=== PATIENT | male | born 1975 | race Caucasian/White ===

== ENCOUNTER → 2018-01-25 | Outpatient (CLI) | payer OTHER ==
[~2018-01-25] MED LIST: CHOL100010 PO; CLR10 PO; MULT-506 PO; OXYM0.0592 NAE
== END | disposition home or self-care (01) ==
LOC: C.PATHSPEC 14:39
DX: C44.310 Basal cell carcinoma of skin of unspecified parts of face (principal)

== ENCOUNTER 2025-03-29 07:29 | Observation (INO) ==
--- NOTE | 2025-03-29 07:43 | Emergency Department Note ---
Impression & Plan Renal colic, Acute flank pain, Hydronephrosis ED Provider Note NAME: LEYLA SILVA AGE: 50 SEX: M : 1975 ARRIVES VIA: Walk-In INFORMANT: Patient ED PROVIDER(S): Leyla Davies DO CHIEF COMPLAINT: Right flank pain HPI: Patient is a 50-year-old male who presents ER for right flank pain. He notes it started this morning around 6 AM. Started in the back and is radiated to the right flank. Associated with nausea but no vomiting. Denies any headache or change in vision. No chest pain or shortness of breath. No dysuria, urgency, or frequency but notes he is having trouble appearing. This feels exact like his previous kidney stones. No other exacerbating or remitting factors. He notes he is unable to sit still due to the pain. ADDITIONAL HISTORY OBTAINED: Per HPI Chronic Medical/Social Conditions Affecting Care: Per HPI PAST MEDICAL HISTORY:See Below PAST SURGICAL HISTORY:See Below FAMILY HISTORY:See Below SOCIAL HISTORY:See Below HOME MEDICATIONS:See Below ALLERGIES:See Below VITALS:See Below PHYSICAL EXAMINATION: GENERAL: Sitting up in bed, alert, in significant distress holding right flank rolling around in bed EYE EXAM: normal conjunctiva. OROPHARYNX: Dry mucous membranes LUNGS: Clear to auscultation. Normal chest wall mechanics HEART: no murmurs, S1 normal and S2 normal ABDOMEN: abdomen soft, non-tender, normo-active bowel sounds, no masses, no rebound or guarding. BACK: Back is symmetrical on inspection and there is no deformity, no midline tenderness, no CVA tenderness. UPPER EXTREMITIES: upper extremities are grossly normal. LOWER EXTREMITIES: No pitting edema. NEURO EXAM: Normal sensorium, cranial nerves II-XII grossly intact, normal speech, no gross weakness of arms, no gross weakness of legs. MEDICAL DECISION MAKING: Patient is a 50-year-old male who presents to the ER who presents the ER for above-stated complaint. IV was established blood work was obtained. Labs show no significant leukocytosis or anemia. BMP with a CO2 at 19. LFTs and bilirubin unremarkable. Lipase normal. UA was negative. CT abdomen pelvis shows a 5 mm mid ureteral stone. Patient was given 2 doses of morphine as well as Dilaudid Toradol and Tylenol. He still had persistence and recurrence of the pain. He was given Zofran. He was updated bedside and he is feeling better and consequently was put up for discharge. Pain worsened and at this time he was admitted and discussed with the hospitalist. Consults/Care Managements Discussions: Per MDM Triage Nursing notes reviewed. Limited review of prior medical records performed Vital Signs: reviewed and remarkable for no significant abnormalities Differential diagnosis: Differential diagnoses includes but is not limited to gastritis, peptic ulcer disease, GERD, gallbladder disease, pancreatitis, small bowel obstruction, appendicitis, diverticulitis, hernia, urinary tract infection, torsion, perforation, trauma, infectious. ER treatment provided: See below Diagnostics interpreted by me include EKG and cardiac monitoring as listed below: -Cardiac Monitoring: An order was placed for continuous cardiac monitoring. The monitor shows a rate of 80 with sinus rhythm. -ECG: none -Laboratory studies:Interpreted by me as stated above in MDM and shown below. Imaging studies: Xrays: As interpreted by me:none CTs show: CT abdomen pelvis per my pleurae interpretation shows no obvious bowel obstruction CT abdomen pelvis per radiology as described above Procedures:none Critical Care: None Past Med/Surg History Problem List Right ureteral stone Hydronephrosis (Acute) Acute flank pain (Acute) Renal colic (Acute) Status post right inguinal hernia repair H/O hernia repair (08/16/19) Right Inguinal Hernia Open Repair, Right Sided Vasectomy Dr. Silvestre & Dr. Devi 08/16/19 control counseling Encounter for pre-operative examination Kidney stones No known health problems (Chronic 09/19/12) Medical History Anxiety and depression Kidney stones Mitral valve prolapse does not follow with anyone - dx yrs ago History of skin cancer Surgical History Hx of colonoscopy Hx of tonsillectomy Hx of inguinal hernia surgery Dr. 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 3x Family History Grandfather Diabetes Grandmother Diabetes Mother Hypertension Father Cancer Social History Smoking Status: Unknown if ever smoked Second Hand Exposure: No; Do You Dip or Chew Tobacco: No; Hx Alcohol Use: Yes Alcohol type: wine Alcohol Intake Frequency Comment: 1-2 months Hx Substance Use: No Preferred Language: Malian Communication Ability: Effective Virtual Assistant For Advertisers Required: No Beliefs That Will Affect Care: None marital status: Current Living Situation: Alone current occupational status: employed current occupation: IT Feels Safe at Home: Yes Assistive Devices: Contacts and Glasses Allergies Allergies Allergy/AdvReac Type Severity Reaction Status Date / Time gluten Allergy Mild Diarrhea Verified 03/29/25 12:56 Home Meds Home Medications Medication Instructions Recorded Confirmed omega-3 fatty acids 1 cap PO DAILY 07/22/24 03/29/25 trazodone 150 mg tablet 75 mg PO HS PRN Sleep 07/22/24 03/29/25 Previous Rx's Medication Instructions Recorded oxycodone 5 mg tablet 5 mg PO Q4H PRN pain #16 tabs 06/04/24 tamsulosin 0.4 mg capsule 0.4 mg PO HS #30 caps 06/13/24 Results & Data (ED) Vital Signs Vital Signs - 24 hr 03/29/25 07:32 03/29/25 07:52 03/29/25 08:00 Temperature 36.5 C Temperature Source Temporal Artery Scan Pulse Rate 88 83 Pulse Rate [Apical] 78 Pulse Rate [Right Finger] Pulse Rhythm [Right Finger] Pulse Strength [Right Finger] Respiratory Rate 22 18 Respiratory Effort / Characteristics Non-Labored Spontaneous Non-Labored Spontaneous Respiratory Depth Normal Normal Respiratory Pattern Blood Pressure 119/67 Blood Pressure [Left Arm] 111/70 Blood Pressure Mean 84 Blood Pressure Mean [Left Arm] 83 Blood Pressure Position [Left Arm] Lying Pulse Oximetry 96 98 Oxygen Delivery Method Room Air Room Air Oxygen Flow Rate Sepsis Recent Fever Within 48 Hours No Sepsis New/Unexplained Change in Mental Status N/A Sepsis Action Taken by Nursing No Action Required 03/29/25 08:39 03/29/25 08:39 03/29/25 10:00 Temperature Temperature Source Pulse Rate Pulse Rate [Apical] 57 L Pulse Rate [Right Finger] Pulse Rhythm [Right Finger] Pulse Strength [Right Finger] Respiratory Rate 18 Respiratory Effort / Characteristics Non-Labored Spontaneous Respiratory Depth Normal Respiratory Pattern Blood Pressure Blood Pressure [Left Arm] 117/70 Blood Pressure Mean Blood Pressure Mean [Left Arm] 85 Blood Pressure Position [Left Arm] Lying Pulse Oximetry 79 L 100 94 Oxygen Delivery Method Room Air Nasal Cannula Room Air Oxygen Flow Rate 2 Sepsis Recent Fever Within 48 Hours Sepsis New/Unexplained Change in Mental Status Sepsis Action Taken by Nursing 03/29/25 11:24 03/29/25 12:32 03/29/25 12:45 Temperature 36.6 C 36.6 C Temperature Source Oral Oral Pulse Rate Pulse Rate [Apical] 72 Pulse Rate [Right Finger] 68 68 Pulse Rhythm [Right Finger] Regular Regular Pulse Strength [Right Finger] Normal Normal Respiratory Rate 18 18 18 Respiratory Effort / Characteristics Non-Labored Spontaneous Non-Labored Spontaneous Non-Labored Spontaneous Respiratory Depth Normal Normal Normal Respiratory Pattern Regular Regular Blood Pressure Blood Pressure [Left Arm] 124/72 109/71 109/71 Blood Pressure Mean Blood Pressure Mean [Left Arm] 89 83 83 Blood Pressure Position [Left Arm] Lying Lying Lying Pulse Oximetry 100 99 99 Oxygen Delivery Method Room Air Room Air Room Air Oxygen Flow Rate Sepsis Recent Fever Within 48 Hours Sepsis New/Unexplained Change in Mental Status Sepsis Action Taken by Nursing Laboratory Data 03/29/25 07:40 03/29/25 07:40 Lab Results 03/29/25 03/29/25 Range/Units 07:40 09:11 WBC 6.54 (4.8-10.8) K/ul RBC 4.66 L (4.70-6.10) M/uL Hgb 14.8 (14.0-18.0) g/dl Hct 43.2 (42.0-52.0) % MCV 92.7 (80.0-100.0) fL MCH 31.8 (25.0-34.0) pg MCHC 34.3 (32.0-36.0) g/dL RDW Std Deviation 41.9 (36.4-46.3) fL RDW Coeff of Saji 12.2 (11.5-14.5) % Plt Count 202 (130-400) K/uL MPV 10.8 (9.4-12.4) fL Immature Gran % (Auto) 0.2 % Neut % (Auto) 41.5 % Lymph % (Auto) 44.0 % Ransom % (Auto) 9.3 % Eos % (Auto) 4.1 % Baso % (Auto) 0.9 % Neut # (Auto) 2.71 (1.40-6.50) K/uL Lymph # (Auto) 2.88 (1.20-3.40) K/uL Ransom # (Auto) 0.61 H (0.11-0.59) K/uL Eos # (Auto) 0.27 (0.00-0.50) K/uL Baso # (Auto) 0.06 (0.00-0.20) K/uL Immature Gran # (Auto) 0.01 (0.01-0.20) K/uL Sodium 139 (136-145) mmol/L Potassium 3.9 (3.5-5.1) mmol/L Chloride 105 (98-107) mmol/L Carbon Dioxide 19 L (21-32) mmol/L Anion Gap 15 H (3-11) BUN 12 (6-23) mg/dl Creatinine 1.12 (0.6-1.4) mg/dl Est Cr Clr Drug Dosing 81.5 ml/min eGFR 80.03 BUN/Creatinine Ratio 10.7 (10-20) Glucose 167 H (70-99(Fasting)) mg/dl Calcium 9.6 (8.6-10.3) mg/dl Total Bilirubin 0.8 (0.2-1.0) mg/dl AST 29 (13-39) U/L ALT 32 (7-52) U/L Alkaline Phosphatase 98 (34-104) U/L Total Protein 6.9 (6.0-8.3) gm/dl Albumin 4.5 (3.4-5.0) gm/dl Globulin 2.4 L (2.5-4.0) gm/dl Albumin/Globulin Ratio 1.9 (0.9-2) Lipase 27 (11-82) U/L Urine Color Yellow Urine Appearance Clear (Clear) Urine pH 6.0 (4.5-7.5) Ur Specific [place] 1.013 (1.000-1.030) Urine Protein Negative (Negative) Urine Glucose (UA) 1+ H (Negative) Urine Ketones 3+ H (Negative) Urine Blood 2+ H (Negative) Urine Nitrite Negative (Negative) Urine Bilirubin Negative (Negative) Urine Urobilinogen Negative (Negative) Ur Leukocyte Esterase Negative (Negative) Urine WBC (Auto) 0-5 (0-5) /hpf Urine RBC (Auto) 11-20 H (0-2) /hpf U Hyaline Cast (Auto) 0-2 (0-2) /lpf U Epithel Cells (Auto) 0-2 (0-2) /hpf Urine Bacteria (Auto) None Seen (None Seen) Urine Comment Administered Medications Discontinued Medications Hydromorphone HCl (Hydromorphone Inj 1 Mg/Ml Syringe) 1 mg IV NOW STA Stop: 03/29/25 10:53 Last Admin: 03/29/25 11:15 Dose: 1 mg Documented By: CC Sodium Chloride (Nss) 1,000 mls @ 999 mls/hr IV .Q1H1M NIK Stop: 03/29/25 09:45 Last Admin: 03/29/25 07:45 Dose: 999 mls/hr Documented By: Infusion: 03/29/25 07:45 Dose: Infused Documented By: Admin: 03/29/25 07:45 Dose: 999 mls/hr Documented By: MR Acetaminophen (Ofirmev) 1,000 mg in 100 mls @ 400 mls/hr IV NOW STA Stop: 03/29/25 08:19 Last Infusion: 03/29/25 09:02 Dose: Infused Documented By: Admin: 03/29/25 08:09 Dose: 400 mls/hr Documented By: CC Ketorolac Tromethamine (Ketorolac Tromethamine 15 Mg/Ml Vial) 15 mg IV NOW ONE Stop: 03/29/25 07:40 Last Admin: 03/29/25 07:46 Dose: 15 mg Documented By: MR Morphine Sulfate (Morphine Sulfate 10 Mg/Ml Carp/Vial) 6 mg IV NOW STA Stop: 03/29/25 07:40 Last Admin: 03/29/25 07:46 Dose: 6 mg Documented By: MR Morphine Sulfate (Morphine Sulfate 10 Mg/Ml Carp/Vial) 6 mg IV NOW STA Stop: 03/29/25 08:05 Last Admin: 03/29/25 08:07 Dose: 6 mg Documented By: CC Ondansetron HCl (Ondansetron Inj 2 Mg/Ml 2 Ml Vial) 4 mg IV NOW STA Stop: 03/29/25 07:40 Last Admin: 03/29/25 07:46 Dose: 4 mg Documented By: Tamsulosin HCl (Tamsulosin Hcl 0.4 Mg Cap) 0.4 mg PO NOW ONE Stop: 03/29/25 08:06 Last Admin: 03/29/25 08:35 Dose: Not Given Documented By: CC Imaging Data Radiologist's Impression: Abdomen/Pelvis CT 03/29/25 07:[address] WITHOUT CONTRAST CT DOSE: 690.47 mGy.cm HISTORY: r flank pain TECHNIQUE: Multiaxial CT images of the abdomen and pelvis were performed without contrast. A dose lowering technique was utilized adhering to the principles of ALARA. COMPARISON STUDY: 06/04/2024 FINDINGS: ABDOMEN: Liver, gallbladder, spleen, pancreas, and adrenal glands have an unremarkable non-IV contrasted appearance. There is stable stranding and haziness at the central small bowel mesentery with a few small adjacent lymph nodes consistent with mesenteritis. No abdominal aortic aneurysm. There is mild hydronephrosis at the right kidney. There is a 5 mm calculus mid right ureter. There is no hydronephrosis on the left. No other renal or ureteral calculi seen. Pelvis: Prostate is enlarged. Urinary bladder is mildly distended. There is a tiny prostate calcification. There is mild sigmoid diverticulosis. No acute diverticulitis. No bowel inflammation or obstruction. Normal appendix. No free fluid, free air, or abscess. No enlarged adenopathy. Osseous structures: There is minimal left convex upper lumbar scoliosis. There are mild degenerative changes at the lumbar spine. IMPRESSION: 5 mm calculus mid right ureter causes mild right hydronephrosis. ACT 112: Negative or not required by law. The above report was generated using voice recognition software. It may contain grammatical, syntax or spelling errors. Electronically signed by: Jesus Seymour M.D. 03/29/2025 8:46 AM Discharge Plan Visit Data Chief Complaint: Kidney Stone Stated Complaint: KIDNEY STONE ED Provider: Leyla Davies Discharge Problem: Renal colic, Acute flank pain, Hydronephrosis Patient Disposition: Admitted As Inpatient Condition: Fair Discharge Instructions Alexus/Other Patient Handouts: ED [facility] Kidney Stone Activity Restrictions/Additional Instructions: Please follow up with your primary care doctor or if you are a student, [facility] with in the next 24 hours. You were found to have a kidney stone. This is a stone that was made in your kidneys and is currently in your ureter. Once it gets into your bladder you will no longer have any pain and will eventually urinate this out. Any worsening of your symptoms, please return to the ED immediately. This includes any fevers greater than 100.4, worsening pain, chest pain, shortness breath, persistent nausea, vomiting, unable to eat or drink, or any other concerning signs or symptoms from your standpoint. You were given medications during this visit that will inhibit your ability to drive, operate machinery and work. Please do NOT drive, operate machinery or work for the next 12hrs. You were also given a prescription for a narcotic. While taking this medication you should also not drive, operate machinery and or work. You were found to have a blood pressure greater than 120 systolic over 90 diastolic. Due to the new Medicare guidelines, we are now recommending that you follow up with your primary care doctor in regards to this elevated blood pressure. Please follow up with urology and call them first thing when you leave here between the hours of 8am and 5pm to schedule an appointment. Please inform them that you were seen and evaluated in the ER and need follow-up for your kidney stone. Interventions: ED Discharge Assessment Last Done: 03/29/25 12:25 Forms Stand Alone Forms: [facility], Important Visit Information Prescriptions Prescriptions: No Action tamsulosin 0.4 mg capsule 0.4 mg PO HS Qty: 30 2RF oxycodone 5 mg tablet 5 mg PO Q4H PRN (Reason: pain) Qty: 16 0RF trazodone 150 mg tablet 75 mg PO HS PRN (Reason: Sleep) omega-3 fatty acids Capsule 1 cap PO DAILY Referrals Referrals: Len Coates MD [Physician] - José Mart [Primary Care Provider] - Discharge Problem: Hydronephrosis Qualifiers: Hydronephrosis type: other Qualified Code(s): N13.39 - Other hydronephrosis
[2025-03-29] MEDS: SODIUM CHLORIDE 0.9% 1,000 ML IV SCH (07:45)
[2025-03-29] MEDS: MoRPHine SULFATE 10 MG/ML CARP/VIAL IV STA ×2 (07:46→08:07)
[2025-03-29] MEDS: ONDANSETRON INJ 2 MG/ML 2 ML VIAL IV STA (07:46)
[2025-03-29] MEDS: KETOROLAC TROMETHAMINE 15 MG/ML VIAL IV ONE (07:46)
[2025-03-29 07:54] LABS: Hematocrit (blood only) 43.2 % (42.0-52.0); Hemoglobin 14.8 g/dl (14.0-18.0); Immature Granulocytes # (auto) 0.01 K/uL (0.01-0.20); Immature Granulocytes % (auto) 0.2 %; Mean Corpuscular Hemoglobin 31.8 pg (25.0-34.0); Mean Corpuscular Volume 92.7 fL (80.0-100.0); Platelet Count 202 K/uL (130-400); RDW Standard Deviation 41.9 fL (36.4-46.3); Red Blood Count 4.66 M/uL (4.70-6.10); White Blood Count 6.54 K/ul (4.8-10.8)
[2025-03-29] MEDS: ACETAMINOPHEN 1,000 MG/100 ML VIAL IV STA (08:09)
[2025-03-29 08:10] LABS: Alanine Aminotransferase 32.0 U/L (7-52); Albumin Globulin Ratio 1.9 (0.9-2); Alkaline Phosphatase 98.0 U/L (34-104); Anion Gap 15.0 (3-11); Bilirubin,Total 0.8 mg/dl (0.2-1.0); Blood Urea Nitrogen 12.0 mg/dl (6-23); Calcium 9.6 mg/dl (8.6-10.3); Carbon Dioxide 19.0 mmol/L (21-32); Chloride 105.0 mmol/L (98-107); Creatinine Clr Calc Pharmacy 81.5 ml/min; Globulin 2.4 gm/dl (2.5-4.0); Glucose 167.0 mg/dl (70-99(Fasting)); Lipase 27.0 U/L (11-82); Potassium 3.9 mmol/L (3.5-5.1); Sodium 139.0 mmol/L (136-145); Total Protein 6.9 gm/dl (6.0-8.3)
[2025-03-29] MEDS: TAMSULOSIN HCL 0.4 MG CAP PO ONE (08:10)
--- NOTE | 2025-03-29 08:48 | CT Scan Report ---
ABDOMEN AND PELVIS CT WITHOUT CONTRAST CT DOSE: 690.47 mGy.cm HISTORY: r flank pain TECHNIQUE: Multiaxial CT images of the abdomen and pelvis were performed without contrast. A dose lo wering technique was utilized adhering to the principles of ALARA. COMPARISON STUDY: 06/04/2024 FINDINGS: ABDOMEN: Liver, gallbladder, spleen, pancreas, and adrenal glands have an unremarkable non-IV contras khloe appearance. There is stable stranding and haziness at the central small bowel mesentery with a fe w small adjacent lymph nodes consistent with mesenteritis. No abdominal aortic aneurysm. There is mil d hydronephrosis at the right kidney. There is a 5 mm calculus mid right ureter. There is no hydronep hrosis on the left. No other renal or ureteral calculi seen. Pelvis: Prostate is enlarged. Urinary bladder is mildly distended. There is a tiny prostate calcifica tion. There is mild sigmoid diverticulosis. No acute diverticulitis. No bowel inflammation or obstruc tion. Normal appendix. No free fluid, free air, or abscess. No enlarged adenopathy. Osseous structures: There is minimal left convex upper lumbar scoliosis. There are mild degenerative changes at the lumbar spine. IMPRESSION: 5 mm calculus mid right ureter causes mild right hydronephrosis. ACT 112: Negative or not required by law. The above report was generated using voice recognition software. It may contain grammatical, syntax o r spelling errors. Electronically signed by: Jesus Seymour M.D. 03/29/2025 8:46 AM
[2025-03-29 09:30] LABS: Appearance Urine Clear (Clear); Bacteria Urine Automated None Seen (None Seen); Cast Urine Automated 0-2 /lpf (0-2); Epithelial Cell Urine Auto 0-2 /hpf (0-2); Glucose Urine UA 1+ (Negative); WBC Urine Automated 0-5 /hpf (0-5)
[2025-03-29] MEDS ORDERED: ACETAMINOPHEN 325 MG TAB PO PRN (11:11)
[2025-03-29] MEDS ORDERED: ONDANSETRON INJ 2 MG/ML 2 ML VIAL IV PRN ×2 (11:11→12:58)
[2025-03-29] MEDS: HYDROmorphone INJ 1 MG/ML SYRINGE IV STA (11:15)
[2025-03-29] MEDS ORDERED: HYDROmorphone INJ 1 MG/ML SYRINGE IV PRN (11:23)
--- NOTE | 2025-03-29 11:28 | History & Physical Report ---
Date of Service March 29, 2025 Assessment & Plan (1) Kidney stones: Plan: CT showing 5 mm calculus mid right ureter causes mild right hydronephrosis. Pain control with morphine, Toradol, and Dilaudid for breakthrough pain IVF flomax zofran prn Urology consulted Plan Heparin SQ for DVT px History of Present Illness Chief Complaint: Right sided flank pain Primary Care Provider: José Mart Pt is a 50 y/o male with pmh of previous kidney stones who presents with severe flank pain that woke him up from his sleep at 6am this morning. Patient states pain is similar in character to his previous kidney stone. In the ER CT a/p showed 5 mm calculus mid right ureter causes mild right hydronephrosis. Pt was given morphine, toradol, and flomax. Still with severe intractable pain. He is being admitted for further pain management and follow up by urology. Allergies Allergy/AdvReac Type Severity Reaction Status Date / Time gluten Allergy Mild Diarrhea Verified 09/15/24 08:03 Home Medications Medication Instructions Recorded Confirmed Type oxycodone 5 mg tablet 5 mg PO Q4H PRN pain #16 tabs 06/04/24 03/29/25 Rx tamsulosin 0.4 mg capsule 0.4 mg PO HS #30 caps 06/13/24 03/29/25 Rx omega-3 fatty acids 1 cap PO DAILY 07/22/24 03/29/25 History trazodone 150 mg tablet 75 mg PO HS PRN Sleep 07/22/24 03/29/25 History ondansetron 4 mg disintegrating 4 mg PO Q8H PRN nausea and 03/29/25 Rx tablet vomiting 5 days #15 tabs oxycodone 5 mg tablet 5 mg PO Q6H PRN pain #10 tabs 03/29/25 Rx Past Med/Surg History Problem List (Updated 03/29/25 @ 10:14 by Oneil Davies DO) Hydronephrosis (Acute) Acute flank pain (Acute) Renal colic (Acute) Status post right inguinal hernia repair H/O hernia repair (08/16/19) Right Inguinal Hernia Open Repair, Right Sided Vasectomy Dr. Silvestre & Dr. Devi 08/16/19 control counseling Encounter for pre-operative examination Kidney stones No known health problems (Chronic 09/19/12) Medical History Anxiety and depression Kidney stones Mitral valve prolapse does not follow with anyone - dx yrs ago History of skin cancer Surgical History Hx of colonoscopy Hx of tonsillectomy Hx of inguinal hernia surgery Dr. 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 3x Family History Grandfather Diabetes Grandmother Diabetes Mother Hypertension Father Cancer Social History Smoking Status: Unknown if ever smoked Second Hand Exposure: No; Do You Dip or Chew Tobacco: No; Hx Alcohol Use: Yes Alcohol type: wine Alcohol Intake Frequency Comment: 1-2 months Hx Substance Use: No Preferred Language: Citizen Of [place] Communication Ability: Effective Senior Radiation Therapist Required: No Beliefs That Will Affect Care: None marital status: Current Living Situation: Alone current occupational status: employed current occupation: IT Feels Safe at Home: Yes Assistive Devices: Contacts and Glasses Review of Systems Review of Systems: CONST: Negative for fever, body aches and chills. HENT: Negative for neck pain/stiffness, headache, congestion, sore throat, swelling. EYES: Negative for discharge/pain or vision changes. RESP: Negative for cough/hemoptysis and shortness of breath. CV: Negative chest pain, difficulty breathing, palpitations. ABD: Right sided flank tenderness : Negative increase frequency, dysuria, blood in urine or stool. MUSC: Negative for muscle aches, edema. SKIN: Negative rash, lesions/sores. NEURO: Negative headache, dizziness, weakness. Physical Exam Physical Exam: GENERAL APPEARANCE NAD, activity normal for age, well developed/ well nourished, no cyanosis, pallor, or diaphoresis. EYES lids/conjunctiva normal. EARS/NOSE/THROAT Mucous membranes moist, nares normal, lips/teeth normal uvula midline without oral pharyngeal erythema, exudate or swelling TMs normal bilaterally. No lymphangitis/lymphedema. HEAD/NECK normocephalic atraumatic, no facial trauma, neck is supple. RESPIRATORY respiratory effort normal, speaks in full sentences, no tripod position, no accessory muscle use. Lungs clear to auscultation without rhonchi, wheezes, rales CARDIAC Regular rate and rhythm, no edema. ABDOMINAL Right sided flank tenderness No pulsatile masses on exam, rebound tenderness, Mendoza sign or pain over Mcburney's point. MUSCLES/EXTREMITIES No abnormal range of motion, no swelling. SKIN Warm, pink and dry. No rashes, dermatoses, petechiae or lesions. NEUROLOGICAL Speech is clear and appropriate. Normal level of consciousness. Gait and coordination are normal. 5/5 strength in all extremities. PSYCH Normal mood and affect. Judgement/competence is appropriate Results & Data Results & Data Vital Signs (Past 12 Hours) Vital Signs Temp Pulse Pulse Resp BP BP Pulse Ox 03/29/25 11:24 72 18 124/72 100 03/29/25 10:00 57 L 18 117/70 94 03/29/25 08:39 100 03/29/25 08:39 79 L 03/29/25 08:00 78 18 111/70 98 03/29/25 07:52 83 03/29/25 07:32 36.5 C 88 22 119/67 96 O2 Del Method O2 Flow Rate 03/29/25 11:24 Room Air 03/29/25 10:00 Room Air 03/29/25 08:39 Nasal Cannula 2 03/29/25 08:39 Room Air 03/29/25 08:00 Room Air 03/29/25 07:52 03/29/25 07:32 Room Air PG Care Time/CCT Total # of Minutes Spent Total Time Spent with Patient: Total time spent is greater than 50% in coordination of care (as documented) at patient's floor/unit and/or counseling patient: Coding Level of Care Code 70449 INT INP/OBS CARE 2/55MIN Diagnoses Kidney stones N20.0
--- NOTE | 2025-03-29 12:06 | Urology Consultation ---
Date of Consultation March 29, 2025 Assessment & Plan (1) Right ureteral stone: (2) Hydronephrosis: (3) Acute flank pain: 50-year-old male admitted for intractable right flank pain secondary to an obstructing 5 mm right ureteral calculus. Patient currently afebrile, hemodynamically stable Labs reviewedcreatinine 1.12, WBC 6.54, hemoglobin 14.8 Urinalysis is not suggestive of infection CT abdomen pelvis reviewed and demonstrates a small obstructing calculus in the right ureter with resultant hydronephrosis Subjectively continues to have significant right flank pain despite pain management in the ED Discussed options for stone management including cystoscopy and right ureteral stent placement today He understands stone treatment will take place at a later date Ureteral stents were discussed in detail After discussion, he would like to proceed with stent placement Proceed to OR today for cystoscopy and right ureteral stent placement Risk and benefits of procedure to be reviewed with patient by Dr. Petrona Warren n.p.o. for procedure Continue supportive care and medical management per hospital medicine service Plan Agree with plan above. Due to intractable pain, we will proceed with cystoscopy and right ureteral stent placement. Consent obtained. Patient marked. History of Present Illness Reason for Consultation: right ureteral stone History of Present Illness This is a 50-year-old male who follows with urology for nephrolithiasis. He presented to the emergency department today for evaluation of sudden onset of right flank pain that started this morning. On arrival to ED, he is afebrile and hemodynamically stable. Lab work showed creatinine 1.12, WBC 6.54, hemoglobin 14.8. Urinalysis with 2+ blood, 11-20 RBC and negative for bacteria. Workup included CT abdomen pelvis without contrast which demonstrated a 5 mm calculus of the mid right ureter resulting in mild right hydronephrosis. ED course: IV fluids, tamsulosin, morphine, hydromorphone and ketorolac. He was admitted to the hospital medicine service for intractable right flank pain. Urology is consulted for right ureteral stone. Patient seen and examined in the emergency department. He continues to have significant right flank discomfort despite pain medications. He reports pain started suddenly this morning around 6 am. He has not had anything to eat or drink today. Reports nausea, no vomiting. No fever or chills. Voiding spontaneously. Allergies Allergy/AdvReac Type Severity Reaction Status Date / Time gluten Allergy Mild Diarrhea Verified 09/15/24 08:03 Home Medications Medication Instructions Recorded Confirmed Type oxycodone 5 mg tablet 5 mg PO Q4H PRN pain #16 tabs 06/04/24 03/29/25 Rx tamsulosin 0.4 mg capsule 0.4 mg PO HS #30 caps 06/13/24 03/29/25 Rx omega-3 fatty acids 1 cap PO DAILY 07/22/24 03/29/25 History trazodone 150 mg tablet 75 mg PO HS PRN Sleep 07/22/24 03/29/25 History ondansetron 4 mg disintegrating 4 mg PO Q8H PRN nausea and 03/29/25 Rx tablet vomiting 5 days #15 tabs oxycodone 5 mg tablet 5 mg PO Q6H PRN pain #10 tabs 03/29/25 Rx Patient History Medical History Anxiety and depression Kidney stones Mitral valve prolapse does not follow with anyone - dx yrs ago History of skin cancer Surgical History Hx of colonoscopy Hx of tonsillectomy Hx of inguinal hernia surgery Dr. 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 3x Family History Grandfather Diabetes Grandmother Diabetes Mother Hypertension Father Cancer Social History Smoking Status: Unknown if ever smoked Second Hand Exposure: No; Do You Dip or Chew Tobacco: No; Hx Alcohol Use: Yes Alcohol type: wine Alcohol Intake Frequency Comment: 1-2 months Hx Substance Use: No Preferred Language: Mexican Communication Ability: Effective Travel Assistant Required: No Beliefs That Will Affect Care: None marital status: Current Living Situation: Alone current occupational status: employed current occupation: IT Feels Safe at Home: Yes Assistive Devices: Contacts and Glasses Review of Systems Review of Systems: All systems reviewed & are unremarkable except as noted in HPI & below Physical Exam Constitutional: well developed and well nourished; + uncomfortable Respiratory: normal respiratory effort; no respiratory distress and no labored breathing Gastrointestinal (Abdomen): Inspection/Auscultation: abdomen normal to inspection Musculoskeletal: Head/Neck/Chest: normocephalic Neurologic: moves all extremities and awake Psychiatric: Orientation: alert and oriented x 3 Results & Data Vital Signs (Past 12 Hours) Vital Signs Temp Pulse Pulse Resp BP BP Pulse Ox 03/29/25 11:24 72 18 124/72 100 03/29/25 10:00 57 L 18 117/70 94 03/29/25 08:39 100 03/29/25 08:39 79 L 03/29/25 08:00 78 18 111/70 98 03/29/25 07:52 83 03/29/25 07:32 36.5 C 88 22 119/67 96 O2 Del Method O2 Flow Rate 03/29/25 11:24 Room Air 03/29/25 10:00 Room Air 03/29/25 08:39 Nasal Cannula 2 03/29/25 08:39 Room Air 03/29/25 08:00 Room Air 03/29/25 07:52 03/29/25 07:32 Room Air PG Care Time/CCT Total # of Minutes Spent Total Time Spent with Patient: Total time spent is greater than 50% in coordination of care (as documented) at patient's floor/unit and/or counseling patient: Coding Level of Care Code 13376 IN/OBS CONSULT LVL 4,60M Diagnoses Right ureteral stone N20.1 Hydronephrosis N13.39 Hydronephrosis type: other Acute flank pain R10.9 (2) Hydronephrosis Hydronephrosis type: other Qualified Code(s): N13.39 - Other hydronephrosis
[2025-03-29] MEDS ORDERED: PROPOFOL IV EMULSION 10 MG/ML 20 ML VIAL IV ONE (12:19)
[2025-03-29] MEDS ORDERED: ONDANSETRON INJ 2 MG/ML 2 ML VIAL ONE (12:19)
[2025-03-29] MEDS ORDERED: MIDAZOLAM HCL 1 MG/ML 2ML VIAL ONE (12:19)
--- NOTE | 2025-03-29 12:52 | Anesthesiology Consultation ---
Date of Service March 29, 2025 Assessment & Plan Chart Review Chart Review: Acceptable Risk for Surgery Consults Requested none History Surgery Operation Date: 03/29/25 08:10 Proposed Procedures p Cystoscopy, Right Stent Placement - Dong Russ MD Height/Weight Height: 5 ft 10 in Weight: 75.7 kg Allergies Allergy/AdvReac Type Severity Reaction Status Date / Time gluten Allergy Mild Diarrhea Verified 09/15/24 08:03 Medications Home Medications Medication Instructions Recorded Confirmed Last Taken oxycodone 5 mg tablet 5 mg PO Q4H PRN pain #16 tabs 06/04/24 03/29/25 03/29/25 tamsulosin 0.4 mg capsule 0.4 mg PO HS #30 caps 06/13/24 03/29/25 08/18/24 22:30 omega-3 fatty acids 1 cap PO DAILY 07/22/24 03/29/25 08/12/24 trazodone 150 mg tablet 75 mg PO HS PRN Sleep 07/22/24 03/29/25 08/18/24 22:30 ondansetron 4 mg disintegrating 4 mg PO Q8H PRN nausea and 03/29/25 Unknown tablet vomiting 5 days #15 tabs oxycodone 5 mg tablet 5 mg PO Q6H PRN pain #10 tabs 03/29/25 Unknown NPO Date Last Intake of Fluids: 03/28/25 Time Last Intake of Fluids: 23:00 Last Intake of Fluids Comment: "ice chips in the ER" Date Last Intake of Solids: 03/28/25 Time Last Intake of Solids: 23:00 Past Medical History Medical History Anxiety and depression Kidney stones Mitral valve prolapse does not follow with anyone - dx yrs ago History of skin cancer Past Family History Family History Grandfather Diabetes Grandmother Diabetes Mother Hypertension Father Cancer Past Surgical History Surgical History Hx of colonoscopy Hx of tonsillectomy Hx of inguinal hernia surgery Dr. 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 3x Social History Smoking Status: Unknown if ever smoked Do You Dip or Chew Tobacco: No Hx Alcohol Use: Yes Alcohol type: wine alcohol intake frequency: other Hx Substance Use: No substance use type: does not use Physical Exam Vital Signs Last Vital Signs Temp 36.6 C 03/29/25 12:45 Pulse 68 03/29/25 12:45 Resp 18 03/29/25 12:45 BP 109/71 03/29/25 12:45 Pulse Ox 99 03/29/25 12:45 O2 Del Method Room Air 03/29/25 12:45 O2 Flow Rate 2 03/29/25 08:39 Testing Laboratory Results 03/29/25 07:40 03/29/25 07:40 Urine Color Yellow 03/29/25 09:11 Urine Appearance Clear (Clear) 03/29/25 09:11 Urine pH 6.0 (4.5-7.5) 03/29/25 09:11 Ur Specific [place] 1.013 (1.000-1.030) 03/29/25 09:11 Urine Protein Negative (Negative) 03/29/25 09:11 Urine Glucose (UA) 1+ (Negative) H 03/29/25 09:11 Urine Ketones 3+ (Negative) H 03/29/25 09:11 Urine Nitrite Negative (Negative) 03/29/25 09:11 Ur Leukocyte Esterase Negative (Negative) 03/29/25 09:11 Urine WBC (Auto) 0-5 /hpf (0-5) 03/29/25 09:11 Urine RBC (Auto) 11-20 /hpf (0-2) H 03/29/25 09:11 U Hyaline Cast (Auto) 0-2 /lpf (0-2) 03/29/25 09:11 U Epithel Cells (Auto) 0-2 /hpf (0-2) 03/29/25 09:11 Urine Bacteria (Auto) None Seen (None Seen) 03/29/25 09:11
[2025-03-29] MEDS ORDERED: ATROPINE SULFATE 0.1 MG/ML 10ML SYR IV PRN (12:58)
[2025-03-29] MEDS ORDERED: HYDROmorphone INJ 2 MG/ML SYR/VIAL IV PRN (12:58)
[2025-03-29] MEDS ORDERED: PROMETHAZINE HCL 6.25 MG in SODIUM CHLORIDE 0.9% 50 ML IV PRN (12:58)
[2025-03-29] MEDS: DIATRIZOATE MEGLUMINE 30% 100ML VIAL INSTIL PRN (13:23)
--- NOTE | 2025-03-29 13:29 | Operative Report ---
PG Post Operative Report Pre & Post Diagnosis Operation Date: 03/29/25 08:10 Pre-Op Diagnosis: (1) Right ureteral stone: (2) Hydronephrosis: (3) Acute flank pain: Post-Op Diagnosis: (1) Right ureteral stone: (2) Hydronephrosis: (3) Acute flank pain: I identified the patient and participated in the time-out.: Yes Procedure Operation Date: 03/29/25 08:10 Actual Procedures p Cystoscopy, Retrograde pyelogram with radiographic interpretation, Right Stent Placement - Dong Russ MD Surgeon Dong Russ MD Flooring Sales Manager None Estimated Blood Loss 0 Findings See Below Mild right hydro. Stent in appropriate position. Specimens None Drains 6 [place] by 26 cm right ureteral stent Anesthesia Type MAC Complications none Indications 50-year-old male with a 4 mm right mid ureteral stone intractable pain Description of Procedure After informed consent was obtained, the patient was transported operative suite. MAC anesthesia was induced. The patient was placed in dorsolithotomy position prepped and draped in a sterile fashion. They received preoperative Ancef for antibiotic prophylaxis. An appropriate surgical timeout was performed. A 22 [place] rigid scope was inserted per urethra into the bladder. Cameron cystoscopy revealed no stones or lesions. I turned my attention the right ureteral orifice and intubated this with a 5 [place] open-ended catheter. A right retrograde pyelogram was shot which showed mild hydronephrosis. A sensor wire was advanced into the kidney and confirmed fluoroscopically. A 6 [place] by 26 cm right ureteral stent was deployed with a good proximal coil in the upper pole as he had a very narrow renal pelvis and a good distal coil noted in the bladder, confirmed fluoroscopically and under direct visualization, respectively. The bladder was emptied and the scope was removed. This concluded the end of the case. All counts were correct at the end of the case. I was present, scrubbed, and actively participated for the entirety of the procedure. I attest to the content of the Intraoperative Record and any orders documented therein. Any exceptions are noted below.
--- NOTE | 2025-03-29 13:51 | Fluoroscopy Report ---
FL retrograde includes kub CLINICAL HISTORY: RT SIDE RETROGRADE AND STENT PLACEMENT COMPARISON STUDY: 11/09/2024 FLUOROSCOPY TIME: 14 seconds FLUOROSCOPY IMAGES: 2 EXPOSURE DOSE: 2.6 mGy FINDINGS: Fluoroscopy was provided for urologic procedure. IMPRESSION: Intraoperative fluoroscopy. ACT 112: Negative or not required by law. Electronically signed by: Jesus Seymour M.D. 03/29/2025 1:50 PM
[2025-03-29] MEDS: HEPARIN SOD 5,000 UNIT/0.5 ML VIAL SQ SCH (14:00)
--- NOTE | 2025-03-29 14:06 | Anesthesiology Progress Note ---
Date of Service March 29, 2025 Anesthesia Post Procedure Vital Signs Vital Signs: Temp Pulse Pulse Pulse Resp BP BP 03/29/25 13:50 36.6 C 67 12 100/59 L 03/29/25 13:40 60 12 100/68 03/29/25 13:30 36.9 C 67 12 103/71 03/29/25 12:45 36.6 C 68 18 109/71 03/29/25 12:32 36.6 C 68 18 109/71 03/29/25 11:24 72 18 124/72 03/29/25 10:00 57 L 18 117/70 03/29/25 08:39 03/29/25 08:39 03/29/25 08:00 78 18 111/70 03/29/25 07:52 83 03/29/25 07:32 36.5 C 88 22 119/67 Pulse Ox O2 Del Method O2 Flow Rate 03/29/25 13:50 94 Room Air 03/29/25 13:40 99 Oxymask 3 03/29/25 13:30 97 Oxymask 6 03/29/25 12:45 99 Room Air 03/29/25 12:32 99 Room Air 03/29/25 11:24 100 Room Air 03/29/25 10:00 94 Room Air 03/29/25 08:39 100 Nasal Cannula 2 03/29/25 08:39 79 L Room Air 03/29/25 08:00 98 Room Air 03/29/25 07:52 03/29/25 07:32 96 Room Air Pain Intensity Right Flank: Pain Intensity: 3 Transfer of Care Handoff Completed per policy Notes Mental Status: alert / awake / arousable and participated in evaluation Patient Amnestic to Procedure: Yes Nausea / Vomiting: adequately controlled Pain: adequately controlled Airway Patency, RR, SpO2: stable & adequate BP & HR: stable & adequate Hydration State: stable & adequate Anesthetic Complications: no major complications apparent
[2025-03-29] MEDS: SODIUM CHLORIDE 0.9% 500 ML IV SCH (15:18)
[2025-03-29] MEDS: MoRPHine SULFATE 4 MG/ML 1 ML CARP\\VIAL IV PRN (17:01)
[2025-03-29] MEDS ORDERED: TAMSULOSIN HCL 0.4 MG CAP PO SCH ×2 (21:00)
[2025-03-29] MEDS: KETOROLAC TROMETHAMINE 15 MG/ML VIAL IV PRN (21:12)
[2025-03-30 07:20] VITALS: RESP 16
--- NOTE | 2025-03-30 08:22 | Urology Progress Note ---
Date of Service March 30, 2025 Assessment & Plan (1) Right ureteral stone: (2) Hydronephrosis: (3) Acute flank pain: Plan: - Pt POD#1 s/p cystoscopy and right ureteral stent placement - Afebrile, stable vitals - No new labs at time of visit this morning - Reports intermittent discomfort with ureteral stent, worse with voiding - Okay to d/c from perspective when medically stable - Recommend d/c with course of Tamsulosin, prn Oxybuynin, prn Pyridium and prn pain medication for stent management - Expected clinical course reviewed, all questions answered - Will arrange outpatient follow-up with our service to arrange definitive stone management - will sign off, please contact resource line additional questions or concerns Admission and Anticipated Discharge Date Admission Date: March 29, 2025 Subjective Patient seen and examined at bedside this morning He reports challenging night, reports significant pain with voiding Reports relief with narcotic pain medication No dysuria, hematuria clearing postprocedure No fever or chills Review of Systems Constitutional: as per Subjective / HPI Genitourinary: + as per Subjective / HPI Physical Exam Constitutional: well developed and well nourished; no acute distress Respiratory: normal respiratory effort; no respiratory distress and no labored breathing Gastrointestinal (Abdomen): Inspection/Auscultation: abdomen normal to inspection Musculoskeletal: Head/Neck/Chest: normocephalic Neurologic: moves all extremities and awake Psychiatric: Orientation: alert and oriented x 3 Results & Data Vital Signs (Past 12 Hours) Vital Signs Temp Pulse Pulse Resp BP Pulse Ox O2 Del Method 03/30/25 07:50 Room Air 03/30/25 07:19 36.8 C 52 L 16 139/74 98 Room Air 03/30/25 03:22 36.9 C 61 18 126/78 98 Room Air 03/29/25 23:00 37.1 C 71 18 119/71 95 Room Air PG Care Time/CCT Total # of Minutes Spent Total Time Spent with Patient: Total time spent is greater than 50% in coordination of care (as documented) at patient's floor/unit and/or counseling patient: Coding Level of Care Code 86945 SUB INP/OBS CARE 10/22MIN Diagnoses Right ureteral stone N20.1 Hydronephrosis N13.39 Hydronephrosis type: other Acute flank pain R10.9 (2) Hydronephrosis Hydronephrosis type: other Qualified Code(s): N13.39 - Other hydronephrosis
[2025-03-30] MEDS: OMEGA-3 (PURIFIED FISH OIL) 1 GM CAP PO SCH (08:55)
--- NOTE | 2025-03-30 10:26 | Discharge Summary ---
Discharge Summary Date of Service March 30, 2025 Principal Dx & Hospital Course #1 = Principal Diagnosis (1) Kidney stones: CT showing 5 mm calculus mid right ureter causes mild right hydronephrosis. Pain control with morphine, Toradol, and Dilaudid for breakthrough pain IVF flomax zofran prn Urology consulted Cystoscopy in ureteral stent placement Plan Heparin SQ for DVT px Admission HPI Per Admitting Provider Pt is a 50 y/o male with pmh of previous kidney stones who presents with severe flank pain that woke him up from his sleep at 6am this morning. Patient states pain is similar in character to his previous kidney stone. In the ER CT a/p showed 5 mm calculus mid right ureter causes mild right hydronephrosis. Pt was given morphine, toradol, and flomax. Still with severe intractable pain. He is being admitted for further pain management and follow up by urology. Discharge Exam GENERAL APPEARANCE NAD, activity normal for age, well developed/ well nourished, no cyanosis, pallor, or diaphoresis. EYES lids/conjunctiva normal. EARS/NOSE/THROAT Mucous membranes moist, nares normal, lips/teeth normal uvula midline without oral pharyngeal erythema, exudate or swelling TMs normal bilaterally. No lymphangitis/lymphedema. HEAD/NECK normocephalic atraumatic, no facial trauma, neck is supple. RESPIRATORY respiratory effort normal, speaks in full sentences, no tripod position, no accessory muscle use. Lungs clear to auscultation without rhonchi, wheezes, rales CARDIAC Regular rate and rhythm, no edema. ABDOMINAL Right sided flank tenderness No pulsatile masses on exam, rebound tenderness, Mendoza sign or pain over Mcburney's point. MUSCLES/EXTREMITIES No abnormal range of motion, no swelling. SKIN Warm, pink and dry. No rashes, dermatoses, petechiae or lesions. NEUROLOGICAL Speech is clear and appropriate. Normal level of consciousness. Gait and coordination are normal. 5/5 strength in all extremities. PSYCH Normal mood and affect. Judgement/competence is appropriate Discharge Plan Discharge Items Patient Disposition: Home - Self-Care Reason For Visit: KIDNEY STONE Discharge Diagnosis: Nephrolithiasis Condition on Discharge: Fair Activity: Resume your previous activity Non-emergency contact: Primary Care Provider Call non-emergency contact if: you have any medication questions Follow-up/Referrals: José Mart [Primary Care Provider] - Diet: Regular Addtl Attending Provider Instructions: Follow up with urology in 2 weeks Pending Studies at Discharge: No Stand-Alone Forms: [facility], Smoking Cessation Medications and DC Order Prescriptions: Continued tamsulosin 0.4 mg capsule 0.4 mg PO HS Qty: 30 2RF oxycodone 5 mg tablet 5 mg PO Q4H PRN (Reason: pain) Qty: 16 0RF trazodone 150 mg tablet 75 mg PO HS PRN (Reason: Sleep) omega-3 fatty acids Capsule 1 cap PO DAILY Discharge Orders: Discharge Order (Routine); Ordered 03/30/25 Ordered By: Cayden Soliman Admission Data Admit Date/Time: 03/29/25 11:11 Attending Provider: Cayden Soliman Admit Provider: Cayden Soliman Primary Care Provider: José Mart Other Providers: Cayden Soliman; Dong Russ Hospital Stay Data Consultations 03/29/25 11:01 ED Decision to Admit Stat 03/29/25 11:09 Consult Urology Routine Procedures Performed Operation Date: 03/29/25 08:10 Actual Procedures p Cystoscopy, Retrograde pyelogram, Right Stent Placement - Dong Russ MD Diagnostic Imagining Performed 03/29/25 07:39 CT stones [CT abd pelvis wo con] Stat 03/29/25 12:30 FL retrograde includes kub Routine Pending Results Patient Have Any Pending Studies at Discharge: No Discharge Instructions Given to Patient (Per Discharging Provider) Follow up with urology in 2 weeks Total Time Total Time Spent Total Time Spent (In Minutes): 50 Coding Level of Care Code 24199 INP/OBS DISCH >30 MIN Diagnoses Kidney stones N20.0
[2025-03-30 11:18] VITALS: BP 149/90; PULSE 82; TEMP 98.1; O2SAT 96
== END 2025-03-30 12:19 | disposition home or self-care (01) ==
LOC: 3E 07:29 → ED 07:29